=== PATIENT | female | born 1960 | race Caucasian/White ===

== ENCOUNTER 2020-01-07 10:14 | Outpatient (CLI) | payer MEDICARE, SELFPAY ==
--- NOTE | 2020-01-07 | XR_ITS ---
WS: [id number] KNEE RIGHT TECHNIQUE: 3 views of the right knee CLINICAL INFORMATION: KNEE PAIN RIGHT COMPARISON: None. FINDINGS: Right knee is normal in appearance. No evidence of acute fracture dislocation. Small suprapatellar ef fusion. Slightly hypertrophic patella. XR/XR knee RT 3V* [id number] IMPRESSION: Slightly hypertrophic patella. Small suprapatellar effusion.
== END 2020-01-07 10:15 | disposition home or self-care (01) ==
PROVIDERS: Family Provider Family Medicine; PCP Family Medicine; Visit Provider Nurse Practitioner Family
DX: Z76.89 Persons encountering health services in other specified circumstances (principal)

== ENCOUNTER 2020-04-18 08:58 | Outpatient (CLI) | payer MEDICARE, SELFPAY ==
--- NOTE | 2020-04-18 09:08 | MM_ITS ---
WS: [id number] BILATERAL DIGITAL SCREENING MAMMOGRAPHY WITH CAD CLINICAL INFORMATION: SCREEN HISTORY: Screening mammogram. No current complaints.Family history of breast cancer. COMPARISON: January 10, 2019 TECHNIQUE: Bilateral CC and MLO views. FINDINGS: The breasts are composed of heterogeneous fibroglandular density tissue, which can limit the detectio n of small underlying mass lesions. No suspicious mass, asymmetry, calcifications, or architectural d istortion. No evidence of malignancy. Stable dense breast tissue upper outer breasts bilaterally. A f ew stable incidental intramammary lymph nodes. MM/[id number] IMPRESSION: BI-RADS: 2-Benign FOLLOW UP: 1 Year Follow-up Recommend return to annual screening mammography.
== END 2020-04-18 08:59 | disposition home or self-care (01) ==
LOC: RADSHAW 09:05
PROVIDERS: PCP Family Medicine; Visit Provider Family Medicine
DX: Z12.31 Encounter for screening mammogram for malignant neoplasm of breast (principal)
CPT/HCPCS: 77067

== ENCOUNTER 2020-07-10 14:09 | Outpatient (CLI) | payer MEDICARE, SELFPAY | END 2020-07-10 14:10 | disposition home or self-care (01) | LOC: ONCMED 14:13 | PROVIDERS: PCP Family Medicine; Visit Provider Internal Medicine Medical Oncology | DX: Z85.43 Personal history of malignant neoplasm of ovary (principal); I10 Essential (primary) hypertension | CPT/HCPCS: 36415 ==

== ENCOUNTER → 2020-09-16 09:40 | Outpatient (BNVA) | payer MEDICARE, SELFPAY | PROVIDERS: PCP Family Medicine; Visit Provider Obstetrics & Gynecology | DX: Z01.419 Encounter for gynecological examination (general) (routine) without abnormal findings (principal) | CPT/HCPCS: 82270 ==

== ENCOUNTER 2021-05-18 09:50 | Outpatient (CLI) | payer MEDICARE, SELFPAY ==
--- NOTE | 2021-05-18 10:10 | MM_ITS ---
WS: [id number] BILATERAL SCREENING DIGITAL MAMMOGRAM WITH CAD HISTORY: SCREENING COMPARISON: 04/18/2020 and 01/10/2019 Bilateral CC and MLO views submitted. Computer aided detection analyzed. Breast composition: There are scattered areas of fibroglandular density. No suspicious masses, microc alcifications or architectural distortion. MM/[place] [id number] IMPRESSION: BI-RADS: 2-Benign FOLLOW UP: 1 Year Follow-up
== END 2021-05-18 09:51 | disposition home or self-care (01) ==
PROVIDERS: PCP Family Medicine; Visit Provider Family Medicine
DX: Z12.31 Encounter for screening mammogram for malignant neoplasm of breast (principal)
CPT/HCPCS: 77067

== ENCOUNTER → 2022-05-20 14:32 | Outpatient (BNVA) | payer MEDICARE, SELFPAY | PROVIDERS: PCP Family Medicine; Visit Provider Surgery | DX: K92.1 Melena (principal) | CPT/HCPCS: 99203 ==

== ENCOUNTER 2022-06-02 08:35 | Day surgery (SDC) | payer MEDICARE, SELFPAY ==
[2022-05-31 13:38] VITALS: BMI 26.6
[2022-06-02 09:01] VITALS: BP 153/71; PULSE 66; RESP 18; TEMP 36.3; O2SAT 98
[2022-06-02] MEDS: sodium chloride 0.9% 1,000 ML 30 ML IV (09:06)
--- NOTE | 2022-06-02 09:41 | P.ANESASSM_ITS ---
Pre-Anesthetic Assessment Height/Weight: Height 1.63 m Weight 70.307 kg Temp Pulse Resp BP Pulse Ox 97.3 F L 66 18 153/71 98 06/02/22 09:01 06/02/22 09:01 06/02/22 09:01 06/02/22 09:01 06/02/22 09:01 Preop Diagnosis: Blood in stool Operation Date: 06/02/22 10:15 Proposed Procedures p Colonoscopy 49877,K92.1(Not Applicable) - Emmanuel Coto MD Familial anesthetic complications: none Was Beta Tamy taken within 24 hours: N/A Was Clonidine taken within 24 hours: N/A Last intake: Intake Last Liquid Date 06/01/22 Last Liquid Time 22:00 Last Solid Date 05/31/22 Last Solid Time 20:00 Social No alcohol and No tobacco Exam alert, oriented x 3, clear to auscultation bilaterally and regular rate & rhythm Airway Submandibular: within normal limits Cervical ROM: within normal limits Mallampati: Class II Dentition: chipped History/ROS No significant complaints Pulmonary None reported CV/HEM Hypertension None reported Hepatic None reported GI Gastroesophageal Reflux Disease Metabolic None reported Musc/skel Osteoarthritis/DJD Neuropsych Hx of brain tumor Anesthetic Plan ASA status: 2 Anesthesia: Anesthesia Evaluation, General and MAC Other: We discussed risk and benefits of general anesthesia including PONV, sore throat (sometimes severe), corneal abrasion, positioning and peripheral nerve injuries, life threatening allergic reaction, post operative ICU admission requiring prolonged intubation, aspiration, stroke, heart attack, , and rare incidences of recall. Patient consents to proceed with general anesthesia. Risk of > 500 ml blood loss (7ml/kg in children): No Medications/Allergies Home Medications Medication Instructions Recorded Confirmed Last Taken Type aspirin 81 mg tablet,delayed 81 mg PO DAILY 08/11/20 05/31/22 05/29/22 History release benazepril 40 mg tablet 40 mg PO DAILY 08/11/20 05/31/22 06/01/22 History gabapentin 400 mg capsule 400 mg PO TID 08/11/20 05/31/22 06/02/22 History hydrochlorothiazide 12.5 mg capsule 12.5 mg PO DAILY 08/11/20 05/31/22 06/02/22 History multivitamin 1 tab PO DAILY 08/11/20 05/31/22 06/02/22 History meloxicam 15 mg tablet 15 mg PO DAILY 05/20/22 05/31/22 06/01/22 History naproxen 500 mg tablet 500 mg PO BID PRN 05/20/22 05/31/22 06/01/22 History tramadol 50 mg tablet 50 mg PO .1-2 qid PRN tab 05/20/22 05/31/22 05/31/22 History diphenhydramine HCl 25 mg capsule 25 mg PO DAILY 05/31/22 05/31/22 06/01/22 History (Benadryl) Allergies Allergy/AdvReac Type Severity Reaction Status Date / Time No Known Allergies Allergy Verified 05/31/22 13:35 Current Medications Generic Name Dose Route Start Last Admin Trade Name Freq PRN Reason Stop Dose Admin Sodium Chloride 1,000 mls @ 30 mls/hr 06/02/22 08:45 06/02/22 09:06 Sodium Chloride 0.9% IV 06/03/22 08:44 30 mls/hr .Q24H CASEY Administration PFSH Anesthesia Medical History Benign brain tumor (11/2012) Possible meningioma (patient unsure of actual diagnoses other than benign). Had been removed surgically in 2012. Chemotherapy-induced neuropathy Is on gabapentin managed by primary care provider Colon polyps Tubular adenoma. Colonoscopy by Dr. 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 Had 3 courses of chemotherapy following surgery--managed by Dr. Goddard. Is now being followed with yearly CA-125 Hypertension Diagnosed in her 50s and has been on medication managed by primary care provider. No pertinent past medical history Denies diabetes, asthma, seizures, DVT/PE PCP: Dr. Polk Surgical History History of carpal tunnel surgery July and August 2021---bilateral carpal tunnel surgery performed by Dr. Whyte as well as a left trigger finger surgery. S/P appendectomy (04/15/09) Performed at time of hysterectomy. Performed by Dr. Wolff at [facility] in [place], [place] S/P brain surgery (12/14/12) Excision of brain tumor (probable meningioma). S/P BISHOP-BSO (total abdominal hysterectomy and bilateral salpingo-oophorectomy) (04/15/09) With ovarian cancer staging (pelvic washings, pelvic lymph node sampling, peritoneal biopsies, partial omentectomy, appendectomy). Performed by Dr. Wolff at [facility] in [place], [place] Family History Father Hypertension Diabetes Heart disease Grandfather Heart disease Paternal, Grandmother Diabetes Paternal, Mother Breast cancer Diagnosed in her 40s or 50s Heart disease Hyperlipidemia Denies family history of Colon cancer Ovarian cancer Uterine cancer Thyroid condition Stroke Social History Smoking and tobacco status: current every day smoker (smokes THC 'I'm leagal') Data Anesthesia Cardiac Studies: No Data to Display
--- NOTE | 2022-06-02 09:58 | W.PM.OPSUD ---
Surgery/Procedure H&P Update DATE OF PROCEDURE: June 02, 2022 DATE H&P PERFORMED: 05/20/22 H&P UPDATE INFORMATION: I have reviewed H&P completed within last 30 days, I have examined patient prior to procedure and No changes to prior documentation PREOP DIAGNOSIS: Blood in stool PRIMARY INDICATION FOR PROCEDURE: The same PLANNED PROCEDURE: Operation Date: 06/02/22 10:15 Proposed Procedures p Colonoscopy 87711,K92.1(Not Applicable) - Emmanuel Coto MD
[2022-06-02 11:10] VITALS: BP 124/64; PULSE 71; RESP 16; TEMP 36.1; O2SAT 100
[2022-06-02 11:20] VITALS: BP 145/82; PULSE 64; RESP 16; O2SAT 100
[2022-06-02 11:30] VITALS: BP 133/98; PULSE 74; RESP 16; O2SAT 100
== END 2022-06-02 11:43 | disposition home or self-care (01) ==
PROVIDERS: PCP Family Medicine; Visit Provider Surgery
PROC: 0DJD8ZZ Inspection of Lower Intestinal Tract, Via Natural or Artificial Opening Endoscopic (ICD-10-PCS; CPT 45378; principal; 2022-06-02 10:15)
DX: K92.1 Melena (principal); K21.9 Gastro-esophageal reflux disease without esophagitis; M19.90 Unspecified osteoarthritis, unspecified site; I10 Essential (primary) hypertension; Z85.43 Personal history of malignant neoplasm of ovary; Z92.21 Personal history of antineoplastic chemotherapy; F17.200 Nicotine dependence, unspecified, uncomplicated
CPT/HCPCS: 45378; J2704; J7030

== ENCOUNTER 2022-06-04 14:01 | Outpatient (CLI) | payer MEDICARE, SELFPAY ==
--- NOTE | 2022-06-04 14:08 | MM_ITS ---
WS: [id number] Bilateral screening 3D tomosynthesis digital mammogram, 06/04/2022 Clinical Data: SCREENING Comparison: 05/18/2021, 04/18/2020, 08/06/2019, 01/31/2019, 01/10/2019, 12/29/2017, 12/27/2016, 12/23/2015, 12/20, 12/02/2014, 11/26/2013, 11/02/2012, 10/07/2011, 03/22/2011, 10/06/2010, 09/18/2010, 08/29/2009, 08/14, 08/06/2008, 07/28/2007. Findings: The breast parenchymal pattern shows fibroglandular tissue. No spiculated masses or clustered calcifi cations are seen. There are no secondary signs of carcinoma. MM/[place] [id number] Impression: 1. Negative bilateral mammogram unchanged. 2. Recommend annual screening mammograms. BIRADS: 0-Incomplete: Need additional imaging evaluation FOLLOW UP: 1 Year Follow-up The CAD field checker was used.
== END 2022-06-04 14:02 | disposition home or self-care (01) ==
PROVIDERS: PCP Family Medicine; Visit Provider Nurse Practitioner Family
DX: Z12.31 Encounter for screening mammogram for malignant neoplasm of breast (principal)
CPT/HCPCS: 77063; 77067

== ENCOUNTER 2022-06-29 13:07 | Outpatient (CLI) | payer MEDICARE, SELFPAY ==
--- NOTE | 2022-06-29 13:16 | XR_ITS ---
WS: [id number] DEXA (DUAL ENERGY X-RAY ABSORPTIOMETRY) Bone mineral density was performed using a [employer] machine. HISTORY: POSTMENOPAUSAL COMPARISON: None available. Lumbar spine BMD (L1-L4): 1.305 g/cm2 T score: 1.0 Z score: 2.2 Total hip BMD: Left: 1.092 g/cm2. T score: 0.7 Z score: 1.6 Right: 0.986 g/cm2. T score: -0.2 Z score: 0.7 10 year probability of a major osteoporotic fracture is 7%. XR/XR DEXA axial skeleton* [id number] IMPRESSION: NORMAL BONE MINERAL DENSITY based upon the WHO classification for females.
== END 2022-06-29 13:08 | disposition home or self-care (01) ==
PROVIDERS: PCP Family Medicine; Visit Provider Nurse Practitioner Family
DX: Z78.0 Asymptomatic menopausal state (principal)
CPT/HCPCS: 77080

== ENCOUNTER 2023-06-06 08:19 | Outpatient (CLI) | payer MEDICARE, SELFPAY ==
--- NOTE | 2023-06-06 08:25 | MM_ITS ---
WS: [id number] VIEWS: MLO and CC views both breasts. 3D digital tomosynthesis is also included in this exam. Comparison made with prior exam of 01/10/2019, 04/18/2020, 05/18/2021, 06/04/2022.. Findings: There was no sign of mass, architectural distortion or suspicious calcification in either breast. Sta ble appearing nodular densities in both breasts.There are scattered areas of fibroglandular density MM/[place] [id number] Impression: BI-RADS: 2-Benign finding. FOLLOW-UP: 1 Year Follow-up This mammogram was also analyzed by the Computer Aided Detection System R2 Imag e Can Machine Operator.
== END 2023-06-06 08:20 | disposition home or self-care (01) ==
LOC: MOBLMAM 08:24 → RAD 10:05
PROVIDERS: PCP Family Medicine; Visit Provider Family Medicine
DX: Z12.31 Encounter for screening mammogram for malignant neoplasm of breast (principal)
CPT/HCPCS: 77063; 77067

== ENCOUNTER → 2023-06-21 10:19 | Outpatient (BNVA) | payer MEDICARE, SELFPAY | PROVIDERS: PCP Family Medicine; Visit Provider Physician Assistant | DX: M51.36 Other intervertebral disc degeneration, lumbar region; M47.816 Spondylosis without myelopathy or radiculopathy, lumbar region; M48.061 Spinal stenosis, lumbar region without neurogenic claudication; M54.50 Low back pain, unspecified; M48.062 Spinal stenosis, lumbar region with neurogenic claudication | CPT/HCPCS: 99204 ==

== ENCOUNTER → 2023-06-21 10:32 | Outpatient (BNVA) | payer MEDICARE, SELFPAY | PROVIDERS: PCP Family Medicine; Visit Provider Physician Assistant | DX: M51.36 Other intervertebral disc degeneration, lumbar region (principal); M47.816 Spondylosis without myelopathy or radiculopathy, lumbar region; M48.061 Spinal stenosis, lumbar region without neurogenic claudication | CPT/HCPCS: 72110 ==

== ENCOUNTER 2023-10-03 08:58 | Outpatient (CLI) | payer MEDICARE, SELFPAY ==
--- NOTE | 2023-10-03 09:30 | MR_ITS ---
WS: [id number] MRI LUMBAR SPINE NONCONTRAST HISTORY: M47.816 - Spondylosis without myelopathy or radiculopathy... COMPARISON: 05/17/2012 TECHNIQUE: Sagittal and axial multisequence imaging is submitted. Degenerative disc and cervical osteophytosis. There is mild central stenosis in the cervical canal at C5-6. Increase in thoracic kyphosis. Degenerative scoliosis lumbar spine. Disc spaces are mildly narrowed with desiccation. No significant desiccation from L3-4 to L5-S1. Isra ow edema along the endplates of L3-4. No acute fracture. Conus terminates normally at L1-2 disc level. T12-L1: Mild annular disc bulging and facet arthritis. Mild foraminal narrowing. L1-L2: Mild annular disc bulging with ligamentum flavum and facet arthritis. Disc encroachment upon t he ventral thecal sac and subarticular recesses. Mild RIGHT subarticular recess stenosis and mild brigida ateral foraminal stenosis. L2-L3: Mild annular disc bulging with moderate facet and ligamentum flavum hypertrophy. Bilateral sub articular recess encroachment, RIGHT greater than LEFT and mild bilateral foraminal narrowing. L3-L4: Marked disc bulging asymmetric to the LEFT. Large LEFT paracentral and foraminal disc protrusi on. There is significant disc encroachment upon the LEFT lateral thecal sac including the L3 and L4 n erve roots. Lesser encroachment upon the RIGHT subarticular recess. Severe LEFT foraminal and mild RI GHT foraminal stenosis. L4-L5: Diffuse annular disc bulging. Central disc protrusion. Moderate facet joint arthritis. There i s mild disc contact on the traversing L5 nerve roots, RIGHT greater than LEFT. Moderate RIGHT and mil d LEFT foraminal stenosis. L5-S1: Mild annular disc bulging with facet arthritis. Moderate to severe RIGHT and mild LEFT foramin al stenosis. There is mild increased T2 signal surrounding the LEFT L3 and L4 facet joint. There is marrow edema i n the LEFT L3 pedicle and lamina. IMPRESSION: 1. Significant progression of facet joint arthritis and degenerative spondylosis since 2011. 2. L3-4: Large LEFT paracentral and foraminal disc protrusion causing severe LEFT foraminal stenosis and contacts both the L3 and L4 nerve roots. Lesser encroachment upon the RIGHT subarticular recess a nd foramen. 3. L4-5: Shallow central disc protrusion with moderate facet arthritis. Mild disc contact on the candy ersing L5 nerve roots, RIGHT greater than LEFT. Moderate RIGHT and mild LEFT foraminal stenosis. 4. L5-S1 moderate to severe RIGHT and mild LEFT foraminal stenosis. 5. L1-2: Mild RIGHT subarticular recess and bilateral foraminal stenosis. 6. L2-3: Mild bilateral subarticular recess and foraminal stenosis. 7. LEFT L3-4 facet joint synovitis with marrow edema in the LEFT L3 pedicle and lamina.
== END 2023-10-03 08:59 | disposition home or self-care (01) ==
LOC: RAD 08:58
PROVIDERS: PCP Family Medicine; Visit Provider Physician Assistant
DX: M47.816 Spondylosis without myelopathy or radiculopathy, lumbar region (principal); M25.78 Osteophyte, vertebrae; M41.56 Other secondary scoliosis, lumbar region; M51.36 Other intervertebral disc degeneration, lumbar region; M65.88 Other synovitis and tenosynovitis, other site
CPT/HCPCS: 72148

== ENCOUNTER → 2023-10-20 08:15 | Outpatient (BNVA) | payer MEDICARE, SELFPAY | PROVIDERS: PCP Family Medicine; Visit Provider Physician Assistant | DX: M51.36 Other intervertebral disc degeneration, lumbar region (principal); M47.816 Spondylosis without myelopathy or radiculopathy, lumbar region; M48.062 Spinal stenosis, lumbar region with neurogenic claudication | CPT/HCPCS: 99214 ==

== ENCOUNTER → 2023-12-07 09:18 | Outpatient (BNVA) | payer MEDICARE, SELFPAY | PROVIDERS: PCP Family Medicine; Referring Provider Physician Assistant; Visit Provider Anesthesiology Pain Medicine | DX: M48.062 Spinal stenosis, lumbar region with neurogenic claudication (principal); M51.36 Other intervertebral disc degeneration, lumbar region; M47.816 Spondylosis without myelopathy or radiculopathy, lumbar region | CPT/HCPCS: 99204 ==

== ENCOUNTER → 2023-12-21 12:18 | Outpatient (BNVA) | payer MEDICARE, SELFPAY | PROVIDERS: PCP Family Medicine; Visit Provider Anesthesiology Pain Medicine | DX: M54.16 Radiculopathy, lumbar region (principal); M48.062 Spinal stenosis, lumbar region with neurogenic claudication | CPT/HCPCS: 64483; 64484; J1100; J3490 ==

== ENCOUNTER → 2024-01-03 09:27 | Outpatient (BNVA) | payer MEDICARE, SELFPAY | PROVIDERS: PCP Family Medicine; Visit Provider Anesthesiology Pain Medicine | DX: M51.36 Other intervertebral disc degeneration, lumbar region (principal); M47.816 Spondylosis without myelopathy or radiculopathy, lumbar region; M48.062 Spinal stenosis, lumbar region with neurogenic claudication | CPT/HCPCS: 99214 ==

== ENCOUNTER → 2024-04-02 10:00 | Outpatient (BNVA) | payer MEDICARE, SELFPAY | PROVIDERS: PCP Family Medicine; Visit Provider Anesthesiology Pain Medicine | DX: M48.062 Spinal stenosis, lumbar region with neurogenic claudication (principal); M51.36 Other intervertebral disc degeneration, lumbar region; M47.816 Spondylosis without myelopathy or radiculopathy, lumbar region | CPT/HCPCS: 99214 ==

== ENCOUNTER 2024-06-22 08:18 | Outpatient (CLI) | payer MEDICARE, SELFPAY ==
--- NOTE | 2024-06-22 08:26 | MM_ITS ---
WS: [id number] Bilateral screening 3D tomosynthesis digital mammogram, 06/22/2024 Clinical Data: SCREENING Comparison: 06/06/2023, 06/04/2022, 05/18/2021, 04/18/2020, 08/06/2019, 01/31/2019, 01/10/2019, 12/29/2017, 12/27/2016, 12/23/2015, 12/20/2014, 12/02/2014, 11/26/2013, 11/02/2012, 10/07/2011, 03/22/2011, 10/06/2010, 09/18, 08/29/2009, 08/14/2008, 08/06/2008, 07/28/2007. Findings: The breast parenchymal pattern shows fibroglandular tissue. No spiculated masses or clustered calcifi cations are seen. There are no secondary signs of carcinoma. MM/[place] [id number] Impression: 1. Negative bilateral mammogram unchanged. 2. Recommend annual screening mammograms. BIRADS: 1-Negative FOLLOW UP: 1 Year Follow-up The CAD gun stock checker was used.
== END 2024-06-22 08:19 | disposition home or self-care (01) ==
LOC: RAD 08:20
PROVIDERS: PCP Family Medicine; Visit Provider Family Medicine
DX: Z12.31 Encounter for screening mammogram for malignant neoplasm of breast (principal); R92.323 Mammographic fibroglandular density, bilateral breasts
CPT/HCPCS: 77063; 77067

== ENCOUNTER 2024-11-05 13:06 | Outpatient (CLI) | payer MEDICARE, SELFPAY ==
--- NOTE | 2024-11-05 13:30 | XR_ITS ---
WS: [id number] SCREENING DEXA SCAN [employer] CLINICAL INFORMATION: Z78.0 - Asymptomatic menopausal state COMPARISON: 2021 FINDINGS: The LEFT forearm bone mineral density measures 0.834. This corresponds to a T score score of -0.5 and Z score of 0.8. Left femoral neck bone mineral density measures 0.986. This corresponds to a T score of -0.4 and Z sc ore of 1.0. Right femoral neck bone mineral density measures 0.923. This corresponds to a T score -0.8 of and Z s core of 0.5. Mean femoral neck bone mineral density measures 0.955. This corresponds to a T score of -0.6 and Z sc ore of 0.8. XR/XR DEXA axial skeleton* [id number] IMPRESSION: Normal bone mineralization LEFT forearm and femoral necks. Patient's FRAX calculated 10 year probability for major osteoporotic fracture i s 7.6% and osteoporotic hip fracture is 0.4%. Bone mineral density femoral necks decreased -3.0%
== END 2024-11-05 13:07 | disposition home or self-care (01) ==
LOC: RAD 13:07
PROVIDERS: PCP Family Medicine; Visit Provider Nurse Practitioner Women's Health
DX: Z13.820 Encounter for screening for osteoporosis (principal); Z78.0 Asymptomatic menopausal state
CPT/HCPCS: 77080

== ENCOUNTER 2025-06-25 08:14 | Outpatient (CLI) | payer MEDICARE, SELFPAY ==
--- NOTE | 2025-06-25 08:22 | MM_ITS ---
WS: [id number] BILATERAL SCREENING DIGITAL TOMOSYNTHESIS MAMMOGRAM WITH CAD HISTORY: SCREENING COMPARISON: 06/22/2024, 06/06/2023 and 06/04/2022 Bilateral CC and MLO views with tomosynthesis and synthetic mammography submitted. Computer aided detection analyzed. Breast composition: There are scattered areas of fibroglandular density. No suspicious masses, microcalcifications or architectural distortion. Benign calcifications in each breast. Intramammary lymph nodes RIGHT breast upper outer quadrant. MM/MM scr BI tomosynthesis [id number] IMPRESSION: BI-RADS: 2 - Benign. FOLLOW UP: 1 Year Follow-up
== END 2025-06-25 08:15 | disposition home or self-care (01) ==
LOC: RAD 08:16
PROVIDERS: PCP Family Medicine; Visit Provider Nurse Practitioner Women's Health
DX: Z12.31 Encounter for screening mammogram for malignant neoplasm of breast (principal); R92.323 Mammographic fibroglandular density, bilateral breasts; R92.1 Mammographic calcification found on diagnostic imaging of breast; R59.0 Localized enlarged lymph nodes
CPT/HCPCS: 77063; 77067